=== PATIENT | male | born 1985 | race Caucasian/White ===

== ENCOUNTER 2025-02-13 13:41 | Outpatient (OUT) | payer MEDICAID, SELFPAY ==
--- OUTSIDE RECORDS SUMMARY | 2025-02-13 13:45 | XMS_ITS | Encounter Summary ---
Author Organization [facility] Address [address] [place], [place] [id number] Care Team Providers Care Ropeman Name Role Phone Unavailable Primary Care Provider Unavailabl e Source Comments In the event this information is protected by the Federal Confidentiality of Alcohol and Drug AbusePatient Records regulations: The Federal rules restrict any use of the information to criminally investigate or prosecute any alcohol or drug abuse patient.[facility] Encounter Details DateTypeDepartmentCare Team (Latest Contact Info)Tkkmpfhodzs17/21/2025Lab Requisition [facility] [address] [place] [address] Jerry Mensah, PhD [address] [phone] Social History Tobacco UseTypesPacks/DayYears UsedDateSmoking Tobacco: Never AssessedSex and Gender InformationValueDate RecordedSex Assigned at BirthNot on fileLegal Sex Male02/07/2025 1:18 PM EDTGender IdentityNot on fileSexual OrientationNot on filedocumented as of this encounter Plan of Treatment Not on file documented as of this encounter Procedures Procedure NamePriorityDate/TimeAssociated DiagnosisCommentsHEPATITIS C VIRUS (HCV) RNA, QUANTITATIVE PCR, PLASMA/IPEKTCtcxkes68/20/2025 12:59 PM EDT documented in this encounter Results * (ABNORMAL) HEPATITIS C VIRUS (HCV) RNA, QUANTITATIVE PCR, PLASMA/SERUM (02/06/2025 12:59 PM EDT)ComponentValueRef RangeTest MethodAnalysis Time Performed AtPathologist SignatureHCV RNADetected(A)Not detected ESTHER MARIE 6800 02/08/2025 5:49 PM [facility] LABHCV RNA (IU/mL)1,660,000(H)IU/mL ESTHER MARIE 6800 02/08/2025 5:49 PM EDTCL[facility] MA[facility] LABHCV RNA (log IU/mL)6.22(H)Log IU/mL ESTHER MARIE 6800 02/08/2025 5:49 PM EDTCL[facility] MAIN LABSpecimen (Source)Anatomical Location / LateralityCollection Method / VolumeCollection TimeReceived TimeBlood BLOOD SPECIMEN / Xlcjcyn1302/06/2025 12:59 PM EDT1 10:59 PM EDT Narrative [facility] - 02/08/2025 5:49 PM EDT marie HCV is an in vitro nucleic acid amplification test for both the detection and quantitation of hepatitis C virus RNA, in human EDTA plasma or serum, of HCV antibody positive or HCV-infected individuals. The linear range of the assay is 15 to 100,000,000 IU/mL (1.18 - 8.00 log IU/mL). The lower limit of detection of the assay is 15 IU/mL. Authorizing ProviderResult TypeResult StatusMajosrini Mensah PhDLABORATORYFinal ResultPerforming OrganizationAddressCity/State/ZIP CodePhone Number [facility] [address] [place] [address], documented in this encounter Visit Diagnoses Not on filedocumented in this encounter
--- OUTSIDE RECORDS SUMMARY | 2025-02-13 13:45 | XMS_ITS | Clinical Summary ---
Author Organization [facility] tem Address [id number] [address] [place] [address] Care Team Providers Care Willow Machine Operator Name Role Phone Unavailable Primary Care Provider Unavailabl e Social History Tobacco UseTypesPacks/DayYears UsedDateSmoking Tobacco: Never AssessedSex and Gender InformationValueDate RecordedSex Assigned at BirthNot on fileLegal Sex Male02/09/2025 12:07 PM EDTGender IdentityNot on fileSexual OrientationNot on file Plan of Treatment DateTypeDepartmentCare Team (Latest Contact Info)Ntxkeiwrvjw82/29/2025 2:00 PM EDTAppointment [facility] [address] [place] [address] Health MaintenanceDue DateLast DoneCommentsDepression Iwtqjoqat89/21/1996Tobacco Vhtnunlac53/21/1996Adult BMI Qjweyukqz98/21/2002DTaP,Tdap and Td Vaccines (1 - Tdap)12/08/2002Influenza Lfkzfpj9912/19/2024 Medical Devices Not on file Insurance
--- OUTSIDE RECORDS SUMMARY | 2025-02-13 13:45 | XMS_ITS | Encounter Summary ---
Author Organization [facility] Address [address] [place], [place] [phone] Care Team Providers Care Circular Knitter Helper Name Role Phone Unavailable Primary Care Provider Unavailabl e Source Comments In the event this information is protected by the Federal Confidentiality of Alcohol and Drug AbusePatient Records regulations: The Federal rules restrict any use of the information to criminally investigate or prosecute any alcohol or drug abuse patient.[facility] Encounter Details DateTypeDepartmentCare Team (Latest Contact Info)Xweyyzpahnu09/21/2025Lab Requisition [facility] [address] [place] [address] Jerry Mensah, PhD [address] [phone] Social History Tobacco UseTypesPacks/DayYears UsedDateSmoking Tobacco: Never AssessedSex and Gender InformationValueDate RecordedSex Assigned at BirthNot on fileLegal Sex Male02/07/2025 1:18 PM EDTGender IdentityNot on fileSexual OrientationNot on filedocumented as of this encounter Plan of Treatment Not on file documented as of this encounter Procedures Procedure NamePriorityDate/TimeAssociated DiagnosisCommentsBLOOD TB SCREEN, DIOILAXXTUcqhbxz70/20/2025 12:58 PM EDT documented in this encounter Results * BLOOD TB SCREEN, INCUBATED (02/06/2025 12:58 PM EDT)ComponentValueRef Range Test MethodAnalysis TimePerformed AtPathologist SignatureTB Nil0.03<=8.00 IU/mL02/10/2025 11:02 [facility] LABTB1 Ag minus Nil0.00<0.35 IU/mL02/10/2025 11:02 AM [facility] LABTB2 Ag minus Nil0.01<0.35 IU/mL02/10/2025 11:02 AM [facility] LABTB ResultNegative 02/10/2025 11:02 AM [facility] LABMitogen minus Nil>9.97>=0.50 IU/mL02/10/2025 11:02 AM [facility] LABTB Gamma Interpretation Infection with M. tuberculosis complex is unlikely. If latent tuberculosis infection is highly suspected, a negative result does not rule out the infection. Specimens from immunocompromised patients and those <5 years of age may show false negative results. In case of a contact investigation, please repeat 8-12 weeks after a known exposure.02/10/2025 11:02 AM [facility] LABSpecimen (Source)Anatomical Location / LateralityCollection Method / VolumeCollection TimeReceived TimeBloodBLOOD SPECIMEN / Unknown 02/06/2025 12:58 PM EDT1 12:36 AM EDT Narrative Authorizing ProviderResult TypeResult StatusMajosrini Mensah PhDLABORATORYFinal ResultPerforming OrganizationAddressCity/State/ZIP CodePhone Number [facility] [address] [place] [address], documented in this encounter Visit Diagnoses Not on filedocumented in this encounter
--- OUTSIDE RECORDS SUMMARY | 2025-02-13 13:45 | XMS_ITS | Clinical Summary ---
Author Organization [facility] Address [address] [place] [address] Care Team Providers Care Scientific Recruiter Name Role Phone Unavailable Primary Care Provider Unavailabl e Encounters DateTypeDepartmentCare NhxhIhgtuwsozph30/21/2025Lab Requisition [facility] [address] [place] [address] Jerry Mensah, PhD 02/07/2025Lab Requisition [facility] [address] [place], [place] [phone] Jerry Mensah, PhD from Last 3 Months Social History Tobacco UseTypesPacks/DayYears UsedDateSmoking Tobacco: Never AssessedSex and Gender InformationValueDate RecordedSex Assigned at BirthNot on fileLegal Sex Male02/07/2025 1:18 PM EDTGender IdentityNot on fileSexual OrientationNot on file Plan of Treatment Not on file Procedures Procedure NamePriorityDate/TimeAssociated DiagnosisCommentsHEPATITIS C VIRUS (HCV) RNA, QUANTITATIVE PCR, PLASMA/DZUXDNruzjvp84/20/2025 12:59 PM EDT BLOOD TB SCREEN, QUGXQAKUANqobnza31/20/2025 12:58 PM EDT from Last 3 Months Results * (ABNORMAL) HEPATITIS C VIRUS (HCV) RNA, QUANTITATIVE PCR, PLASMA/SERUM (02/06/2025 12:59 PM EDT)ComponentValueRef RangeTest MethodAnalysis Time Performed AtPathologist SignatureHCV RNADetected(A)Not detected ESTHER MARIE 6800 02/08/2025 5:[facility] LABHCV RNA (IU/mL)1,660,000(H)IU/mL ESTHER MARIE 6800 02/08/2025 5:49 [address] [facility]TC[facility] LABHCV RNA (log IU/mL)6.22(H)Log IU/mL ESTHER MARIE 6800 02/08/2025 5:49 PM [facility] MA[facility] LABSpecimen (Source)Anatomical Location / LateralityCollection Method / VolumeCollection TimeReceived TimeBlood BLOOD SPECIMEN / Qlcsosw4102/06/2025 12:59 PM EDT1 10:[address] [facility] - 02/08/2025 5:49 PM EDT marie [...] assay is 15 IU/mL. Authorizing ProviderResult TypeResult StatusMajors Allyssa Mensah PhDLABORATORYFinal ResultPerforming OrganizationAddressCity/State/ZIP CodePhone Number [facility] [address] * BLOOD TB SCREEN, INCUBATED (02/06/2025 12:58 PM EDT)ComponentValueRef Range Test MethodAnalysis TimePerformed AtPathologist SignatureTB Nil0.03<=8.00 IU/mL02/10/2025 11:02 AM [facility] LABTB1 Ag minus Nil0.00<0.35 IU/mL02/10/2025 11:02 AM [facility] LABTB2 Ag minus Nil0.01<0.35 IU/mL02/10/2025 11:02 AM [facility] LABTB ResultNegative 02/10/2025 11:02 AM [facility] MAIN LABMitogen minus Nil>9.97>=0.50 IU/mL02/10/2025 11:02 AM [facility] LABTB Gamma Interpretation Infection with M. tuberculosis complex is unlikely. If latent tuberculosis infection is highly suspected, a negative result does not rule out the infection. Specimens from immunocompromised patients and those <5 years of age may show false negative results. In case of a contact investigation, please repeat 8-12 weeks after a known exposure.02/10/2025 11:02 AM [facility] MA[facility] LABSpecimen (Source)Anatomical Location / LateralityCollection Method / VolumeCollection TimeReceived TimeBloodBLOOD SPECIMEN / Unknown 02/06/2025 12:58 PM EDT1 12:36 AM EDT Narrative Authorizing ProviderResult TypeResult StatusMasuraj Mensah PhDLABORATORYFinal ResultPerforming OrganizationAddressCity/State/ZIP CodePhone Number [facility] [address] [phone], from Last 3 Months
--- NOTE | 2025-02-13 13:55 | US_ITS ---
[place] [id number] Patient Name: DEAN POOL MRN: [id number] date: 1985 Sex: M Assigned Patient Location: US Current Patient Location: US Accession/Order Number: [id number] Exam Date: 02/13/2025 14:03 Report Date: 02/13/2025 16:57 At the request of: JESSICA NJ NP Procedure: US right upper quadrant Right upper quadrant ultrasound HISTORY: Chronic hepatitis C Normal size and echogenicity of the liver without hepatic mass. No gallstones or gallbladder wall thickening. Common bile duct has a diameter of 11 mm. Pancreas is poorly visualized due to overlying bowel gas. No right hydronephrosis. US/US right upper quadrant IMPRESSION: No hepatic mass. 11 mm prominence of common bile duct. No intrahepatic biliary ductal dilatation. Normal gallbladder. Limited pancreas. Impression dictated by: Geo Naylor M.D. 02/13/2025 4:57 PM Dictation Location: [place] [address] Electronically authenticated by: [id number] Y Date: 02/13/2025 16:57
== END 2025-02-13 13:42 | disposition home or self-care (01) ==
LOC: US 13:42
PROVIDERS: PCP Nurse Practitioner Primary Care; Visit Provider Nurse Practitioner Primary Care
DX: R74.01 Elevation of levels of liver transaminase levels (principal); B18.2 Chronic viral hepatitis C
CPT/HCPCS: 76705